=== PATIENT | male | born 1995 | race Caucasian/White ===

== ENCOUNTER 2018-04-30 17:25 | Inpatient (IN) | payer OTHER ==
[2018-04-30] VITALS (7 sets, daily range): BP systolic 112–147; BP diastolic 49–81
[~2018-04-30] VITALS: Ht 182.9 cm; Wt 68.0 kg
[2018-04-30] MEDS ORDERED: OMEPRAZOLE40 MG PO (17:54)
[2018-04-30] MEDS ORDERED: TRAMADOL 50 MG50 MG PO (17:54)
[2018-04-30] MEDS ORDERED: ADDERALL 30 MG30 MG PO (17:55)
[2018-04-30] MEDS ORDERED: XANAX 0.5 MG0.5 MG PO (17:56)
[2018-04-30] MEDS ORDERED: VYVANSE40 MG PO (17:57)
[2018-04-30] MEDS ORDERED: PANTOPRAZOLE SO40 M1 PO (17:57)
[2018-04-30 17:58] LABS: ABSOLUTE BASOPHILS 0.1 thou/uL (0.0-0.2); ABSOLUTE EOSINOPHILS 0.1 thou/uL (0.0-0.7); ABSOLUTE MONOCYTES 0.9 thou/uL (0.0-1.2); ABSOLUTE NEUTROPHILS 4.7 thou/uL (1.6-8.1); BASOPHILS 1.2 %; EOSINOPHILS 0.9 %; HEMATOCRIT 48.1 % (42.0-52.0); HEMOGLOBIN 16.5 gm/dL (14.0-18.0); LYMPHOCYTES 25.9 %; MCH 30.8 pg (26.0-34.0); MCHC 34.2 g/dL (28.0-37.0); MONOCYTES 11.5 %; MPV 9.1 fl. (7.2-11.1); NUCLEATED RBCS 0 /100WBC; PLATELET COUNT* 241 thou/uL (150-400); POLYS 60.5 %; RBC 5.35 mil/uL (4.50-6.00); RDW-CV 13.2 % (10.5-14.5); WBC 7.8 thou/uL (4.0-11.0)
[2018-04-30] MEDS ORDERED: WELLBUTRIN XL150 MG PO (18:00)
[2018-04-30] MEDS ORDERED: PRAZOSIN 1 MG CA1 M1 PO (18:01)
[2018-04-30 18:15] LABS: ALKALINE PHOSPHATASE 72 U/L (46-116); ANION GAP 10 mmol/L (7-16); BUN 15 mg/dL (7-18); CALCIUM 8.8 mg/dL (8.5-10.1); CHLORIDE 103 mmol/L (98-107); CO2 25 mmol/L (21-32); CREATININE 1.3 mg/dL (0.6-1.3); GLUCOSE 90 mg/dL (70-99); POTASSIUM 3.7 mmol/L (3.5-5.1); SGOT 22 U/L (15-37); SGPT 22 U/L (30-65); SODIUM 138 mmol/L (136-145); TOTAL BILIRUBIN 0.6 mg/dL (<0.1-1.0); TOTAL PROTEIN 7.8 g/dL (6.4-8.2); TROPONIN-I LEVEL <0.06 ng/mL (<0.06)
[2018-04-30 18:19] LABS: ACETAMINOPHEN < 2 ug/mL (10-30); ALCOHOL < 10 mg/dL (<10); SALICYLATE < 2.8 mg/dL (2.8-20.0)
[2018-05-01] VITALS (8 sets, daily range): BP systolic 95–128; BP diastolic 53–76
[2018-05-01 00:03] LABS: URINE BILIRUBIN NEGATIVE (Negative); URINE BLOOD NEGATIVE (Negative); URINE CLARITY CLEAR; URINE COLOR YELLOW; URINE GLUCOSE-RANDOM NEGATIVE (Negative); URINE KETONES TRACE (Negative); URINE LEUKOCYTES-REFLEX NEGATIVE (Negative); URINE NITRITE-REFLEX NEGATIVE (Negative); URINE PROTEIN NEGATIVE (Negative); URINE UROBILINOGEN 0.2 E.U./dl (0.2-1.0)
[2018-05-01 00:11] LABS: AMP/METHAMP POSITIVE (Negative); BARBITURATES Negative (Negative); BENZODIAZEPINES Negative (Negative); COCAINE Negative (Negative); METHADONE Negative (Negative); OPIATES Negative (Negative); PCP Negative (Negative); THC POSITIVE (Negative)
[2018-05-01] MEDS ORDERED: PROZAC 10 MG CA10 MG PO (06:40)
[2018-05-01] MEDS ORDERED: NEURONTIN 300300 M1 PO (06:40)
[2018-05-01] MEDS ORDERED: DEPAKOTE500 MG PO (06:40)
[2018-05-01 07:37] LABS: CALCIUM 8.6 mg/dL (8.5-10.1); CREATININE 1.2 mg/dL (0.6-1.3); MAGNESIUM 2.2 mg/dL (1.8-2.4)
--- NOTE | 2018-05-01 09:36 | EKG ---
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
--- NOTE | 2018-05-01 09:42 | EKG ---
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
[2018-05-02 04:00] VITALS: BP 113/41
[2018-05-02 04:06] LABS: CALCIUM 8.7 mg/dL (8.5-10.1); CREATININE 1.3 mg/dL (0.6-1.3); MAGNESIUM 2.4 mg/dL (1.8-2.4); POTASSIUM 3.9 mmol/L (3.5-5.1)
[2018-05-02 09:30] VITALS: BP 113/63
[2018-05-02] MEDS ORDERED: WELLBUTRIN SR150 MG PO (10:39)
[2018-05-02 11:16] VITALS: BP 128/70
--- NOTE | 2018-05-02 11:34 | EKG ---
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 05/02/18 1134 1526 1526 Arya Wyatt MD, FAC /EPI
--- NOTE | 2018-05-02 11:48 | EKG ---
[place] [address] ELECTROCARDIOGRAM REPORT Name: RIC VANCE Room: [address] ADM IN .R.#: [id number] Admission: 04/30/18 Attend Phys: John Paul Curtis MD Discharge: Date of : [birth year] Report #: [id number] THIS REPORT FOR: //name// [facility] Test Date: 2018-05-02 Test Time: 09:48:08 Pat Name: RIC PINKY Department: Room: [facility] Gender: M Quality Process Lead: : 1995 Requested By: Rigoberto Kasper Order Number: [id number] MD: Arya Wyatt Measurements Intervals [place] Rate: 66 P: 46 [place]: 144 QRS: 62 QRSD: 85 T: 28 QT: 405 QTc: 425 Interpretive Statements Sinus rhythm Compared to ECG 05/01/2018 07:30:01 no change Electronically Signed On 05-02-2018 11:48:16 REED MAKER by Arya Wyatt [email or web address] <ELECTRONICALLY SIGNED> By: Arya Wyatt MD, [facility] 05/02/18 1148 7 7 Arya Wyatt MD, FACC /EPI
[2018-05-02 15:19] VITALS: BP 112/46
[2018-05-02 16:11] VITALS: BP 112/46
== END 2018-05-02 16:11 | DRG 918 ==
LOC: M.ERS 17:25 → M.TBA-ER 18:23 → M.ICU 18:23 → M.3W 18:23 → M.ICU 18:23 → M.3W 05-01 16:01
PROVIDERS: Emergency Medicine Emergency Medical Services; Internal Medicine; ADMIT Internal Medicine
DX: T42.4X2A Poisoning by benzodiazepines, intentional self-harm, initial encounter (principal); T42.6X2A Poisoning by other antiepileptic and sedative-hypnotic drugs, intentional self-harm, initial encounter; T43.222A Poisoning by selective serotonin reuptake inhibitors, intentional self-harm, initial encounter; T43.622A Poisoning by amphetamines, intentional self-harm, initial encounter; F41.1 Generalized anxiety disorder; F32.9 Major depressive disorder, single episode, unspecified; F17.290 Nicotine dependence, other tobacco product, uncomplicated; F12.10 Cannabis abuse, uncomplicated; Z79.899 Other long term (current) drug therapy; Y92.89 Other specified places as the place of occurrence of the external cause; Z91.041 Radiographic dye allergy status; Z90.49 Acquired absence of other specified parts of digestive tract; Z87.81 Personal history of (healed) traumatic fracture

== ENCOUNTER 2021-04-07 20:31 | Inpatient (IN) | payer OTHER ==
[~2021-04-07] VITALS: Ht 182.9 cm; Wt 83.9 kg
[~2021-04-07 20:31] MED LIST: ADDERALL 30 MG30 MG PO; DEPAKOTE500 MG PO; NEURONTIN 300300 M1 PO; OMEPRAZOLE40 MG PO; PANTOPRAZOLE SO40 M1 PO; PRAZOSIN 1 MG CA1 M1 PO; PROZAC 10 MG CA10 MG PO; TRAMADOL 50 MG50 MG PO; VYVANSE40 MG PO; WELLBUTRIN SR150 MG PO; WELLBUTRIN XL150 MG PO; XANAX 0.5 MG0.5 MG PO
[2021-04-07 20:43] VITALS: BP 138/79
[2021-04-07 21:10] LABS: URINE BILIRUBIN NEGATIVE (Negative); URINE BLOOD TRACE (Negative); URINE CLARITY CLEAR; URINE COLOR YELLOW; URINE GLUCOSE-RANDOM NEGATIVE (Negative); URINE LEUKOCYTES-REFLEX NEGATIVE (Negative); URINE NITRITE-REFLEX NEGATIVE (Negative); URINE PROTEIN 1+ (Negative); URINE SPECIFIC GRAVITY >= 1.030 (1.005-1.030); URINE UROBILINOGEN 0.2 E.U./dl (0.2-1.0)
[2021-04-07 21:12] LABS: URINE KETONES 3+ (Negative)
[2021-04-07 21:26] LABS: AMP/METHAMP Negative (Negative); BARBITURATES Negative (Negative); BENZODIAZEPINES Negative (Negative); COCAINE Negative (Negative); METHADONE Negative (Negative); OPIATES Negative (Negative); PCP Negative (Negative); THC Negative (Negative)
[2021-04-07 21:30] LABS: ABSOLUTE BASOPHILS 0.1 thou/uL (0.0-0.2); ABSOLUTE LYMPHOCYTES 1.4 thou/uL (0.8-5.3); ABSOLUTE MONOCYTES 1.1 thou/uL (0.0-1.2); ABSOLUTE NEUTROPHILS 5.9 thou/uL (1.6-8.1); BASOPHILS 1.2 %; EOSINOPHILS 0.1 %; HEMATOCRIT 46.6 % (42.0-52.0); HEMOGLOBIN 15.9 gm/dL (14.0-18.0); LYMPHOCYTES 16.8 %; MCH 31.9 pg (26.0-34.0); MCV 93.6 fL (80.0-100.0); MONOCYTES 12.6 %; MPV 8.9 fl. (7.2-11.1); NUCLEATED RBCS 0 /100WBC; PLATELET COUNT* 327 thou/uL (150-400); POLYS 69.3 %; RBC 4.98 mil/uL (4.50-6.00); RDW-CV 14.1 % (10.5-14.5); WBC 8.4 thou/uL (4.0-11.0)
[2021-04-07 21:34] LABS: CALCIUM 9.3 mg/dL (8.5-10.1); CREATININE 1.4 mg/dL (0.6-1.3); POTASSIUM 4.6 mmol/L (3.5-5.1)
[2021-04-07 21:39] LABS: ALBUMIN 4.7 g/dL (3.4-5.0)
[2021-04-07 22:25] LABS: BE -7.6 mmol/L (-2 to +3); PCO2 VENOUS 29.6 mmHg (41.0-51.0); PO2 VENOUS 222.3 mmHg (35.0-45.0)
[2021-04-08 02:00] VITALS: BP 102/55
[2021-04-08 06:00] VITALS: BP 120/70
--- NOTE | 2021-04-08 09:16 | EKG ---
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1995 Requested By: Wendi Messina Order Number: [id number] MD: Jeffrey Munson Measurements Intervals [place] Rate: 118 P: 81 [place]: 140 QRS: 77 QRSD: 83 T: 17 QT: 289 QTc: 405 Interpretive Statements Sinus tachycardia Borderline T abnormalities, inferior leads Compared to ECG 05/02/2018 09:48:08 T-wave abnormality now present Sinus rhythm no longer present Electronically Signed On 04-08-2021 9:16:43 BONE PLANT SUPERVISOR by Jeffrey Munson [email or web address] <ELECTRONICALLY SIGNED> By: Jeffrey Munson MD, FAC 04/08/21915 27 27 Jeffrey Munson MD, [facility] /EPI
[2021-04-08 10:00] VITALS: BP 122/77
[2021-04-08 14:00] VITALS: BP 128/74
[2021-04-08 18:00] VITALS: BP 131/84
[2021-04-08 22:00] VITALS: BP 104/66
[2021-04-09 02:00] VITALS: BP 111/71
[2021-04-09 06:32] VITALS: BP 145/78
[2021-04-09 07:46] LABS: ABSOLUTE BASOPHILS 0.1 thou/uL (0.0-0.2); ABSOLUTE EOSINOPHILS 0.1 thou/uL (0.0-0.7); ABSOLUTE LYMPHOCYTES 1.2 thou/uL (0.8-5.3); ABSOLUTE MONOCYTES 0.7 thou/uL (0.0-1.2); ABSOLUTE NEUTROPHILS 2.3 thou/uL (1.6-8.1); BASOPHILS 1.3 %; EOSINOPHILS 1.4 %; HEMATOCRIT 40.9 % (42.0-52.0); LYMPHOCYTES 27.5 %; MCH 31.9 pg (26.0-34.0); MCHC 33.8 g/dL (28.0-37.0); MCV 94.3 fL (80.0-100.0); MONOCYTES 16.7 %; MPV 8.5 fl. (7.2-11.1); NUCLEATED RBCS 0 /100WBC; POLYS 53.1 %; RBC 4.34 mil/uL (4.50-6.00); RDW-CV 13.9 % (10.5-14.5); WBC 4.3 thou/uL (4.0-11.0)
[2021-04-09 07:53] LABS: HEMOGLOBIN 13.8 gm/dL (14.0-18.0); PLATELET COUNT* 209 thou/uL (150-400)
[2021-04-09 07:59] LABS: ALBUMIN 3.7 g/dL (3.4-5.0); CALCIUM 8.4 mg/dL (8.5-10.1); MAGNESIUM 2.4 mg/dL (1.8-2.4); POTASSIUM 3.9 mmol/L (3.5-5.1); TOTAL BILIRUBIN 1.6 mg/dL (<0.1-1.0)
[2021-04-09 08:00] VITALS: BP 110/64
[2021-04-09 09:26] VITALS: BP 114/69
[2021-04-09] MEDS ORDERED: AMITRIPTYLINE H25 M2 PO (14:57)
[2021-04-09] MEDS ORDERED: PRILOSEC OTC20 MG PO (14:57)
[2021-04-09] MEDS ORDERED: ONDANSETRON HCL4 M2 PO (14:57)
[2021-04-09 17:25] VITALS: BP 114/69
[2021-04-09 18:08] VITALS: BP 114/69
[2021-04-09 20:12] LABS: % SATURATION 24 % (20-39); IRON 60 ug/dL (50-175)
[2021-04-11 06:05] LABS: HEPATITIS B SURFACE AG Negative (Negative)
== END 2021-04-09 19:00 | disposition home or self-care (01) | DRG 368 ==
LOC: M.ERS 20:31 → M.TBA-ER 22:53 → M.TBA 04-09 18:45
PROVIDERS: Internal Medicine; Internal Medicine Gastroenterology; Student in an Organized Health Care Education/Training Program; ADMIT Internal Medicine; ATTEND Internal Medicine
PROC: 0DB98ZX Excision of Duodenum, Via Natural or Artificial Opening Endoscopic, Diagnostic (ICD-10-PCS; principal; 2021-04-09)
PROC: 0DB68ZX Excision of Stomach, Via Natural or Artificial Opening Endoscopic, Diagnostic (ICD-10-PCS; principal; 2021-04-09)
DX: K21.01 Gastro-esophageal reflux disease with esophagitis, with bleeding (principal); N17.0 Acute kidney failure with tubular necrosis; K85.90 Acute pancreatitis without necrosis or infection, unspecified; F10.139 Alcohol abuse with withdrawal, unspecified; K92.0 Hematemesis; F32.9 Major depressive disorder, single episode, unspecified; E87.5 Hyperkalemia; F17.210 Nicotine dependence, cigarettes, uncomplicated; K70.10 Alcoholic hepatitis without ascites; K76.0 Fatty (change of) liver, not elsewhere classified; K44.9 Diaphragmatic hernia without obstruction or gangrene; Z20.822 Contact with and (suspected) exposure to COVID-19; Z91.041 Radiographic dye allergy status; Z91.013 Allergy to seafood